=== PATIENT | male | born 1955 | race Caucasian/White ===

== ENCOUNTER 2016-10-28 13:49 | Inpatient (IN) | payer OTHER ==
[~2016-10-28] VITALS: Ht 175.3 cm; Wt 74.2 kg
[~2016-10-28 13:49] MED LIST: AMLO5TAB22 PO; CYCL1PAK PO; HYDR10SO PO; LANTUS2P SC; METO25 PO; PERC5TAB12 PO; ROSU20 PO
[2016-10-28 14:06] VITALS: BP 126/69; PULSE 82; RESP 16; TEMP 99.4; O2SAT 100
[2016-10-28] MEDS ORDERED: GABA300C5 PO (14:20)
[2016-10-28] MEDS ORDERED: LANTINJ SQ (14:20)
[2016-10-28] MEDS ORDERED: LOSA100T PO (14:20)
[2016-10-28] MEDS ORDERED: ROSU1TAB6 PO (14:20)
[2016-10-28] MEDS ORDERED: METO50TA11 PO (14:20)
[2016-10-28] MEDS ORDERED: HUMALOG SQ (14:20)
[2016-10-28] MEDS ORDERED: SODIUM CHLORIDE 0.9% FLUSH 5 ML FLUSH IVF PRN (14:30)
[2016-10-28 14:42] LABS: BASOPHIL % 0.4 % (0.0-2.0); EOSINOPHIL # 0.1 TH/MM3 (0-0.4); EOSINOPHIL % 0.9 % (0.0-4.0); HEMATOCRIT 36.8 % (39.0-51.0); LYMPH % 12.5 % (9.0-44.0); LYMPHOCYTE # 1.1 TH/MM3 (1.0-4.8); MEAN CELL VOLUME 87.5 FL (80.0-100.0); MEAN CORPUSCULAR HEMOGLOBIN 29.2 PG (27.0-34.0); MEAN CORPUSCULAR HGB CONC 33.4 % (32.0-36.0); MONO % 6.7 % (0.0-8.0); NEUT % 79.5 % (16.0-70.0); PLATELET COUNT 241 TH/MM3 (150-450); RED CELL DISTRIBUTION WIDTH 11.6 % (11.6-17.2); WHITE BLOOD COUNT 8.8 TH/MM3 (4.0-11.0)
[2016-10-28 14:44] LABS: HEMO FLAGS AUTO DIFF
--- NOTE | 2016-10-28 14:51 | RADHPO ---
EXAM DATE/TIME: 10/28/2016 14:38 [facility] COMPARISON: No previous studies available for comparison. INDICATIONS : Infected wound left ankle MEDICAL HISTORY : Diabetes mellitus type II. SURGICAL HISTORY : None. ENCOUNTER: Initial ACUITY: 2 days PAIN SCORE: 7/10 LOCATION: Left ankle FINDINGS: AP, lateral and oblique views of the left ankle were obtained demonstrate soft tissue swelling over l ateral malleolus with focal ulceration. There is no underlying bony abnormality. There is no perioste al new bone formation or destructive change. The Ankle mortise is intact. CONCLUSION: Soft tissue swelling and apparent ulceration with no underlying bony abnormality. Valeriano Matta MD on October 28, 2016 at 14:49 Board Certified Radiologist. This report was verified electronically.
[2016-10-28 14:53] LABS: CHLORIDE 105 MEQ/L (98-107); POTASSIUM 5.2 MEQ/L (3.5-5.1); SODIUM (NA) 141 MEQ/L (136-145)
[2016-10-28 14:56] LABS: ANION GAP 8 MEQ/L (5-15); BICARBONATE 28.1 MEQ/L (21.0-32.0); BLOOD UREA NITROGEN 42 MG/DL (7-18)
[2016-10-28 14:58] LABS: SCAN/DIFF AUTO DIFF CONFIRMED
[2016-10-28 14:59] LABS: ALT (GPT) 39 U/L (12-78); AST (GOT) 24 U/L (15-37); GLOMERULAR FILTRATION RATE 44 ML/MIN (>89)
[2016-10-28 15:01] LABS: TOTAL BILIRUBIN ADULT 0.4 MG/DL (0.2-1.0)
[2016-10-28 15:02] LABS: ALKALINE PHOSPHATASE 93 U/L (45-117)
[2016-10-28 15:06] VITALS: BP 159/71; PULSE 72; RESP 18; O2SAT 97
--- NOTE | 2016-10-28 15:23 | PD ---
HPI Chief Complaint: Skin Problem Time Seen by Provider: 14:19 Travel History International Travel<30 days: No Contact w/Intl Traveler<30days: No Traveled to known affect area: No History of Present Illness HPI Patient 61-year-old male presents emergency department for complaints of Ulcer to the left lateral malleolus. Patient states his diabetic and just noticed this ulcer 3 days ago but he thinks is probably been there longer. He states his been a foul smell and some discharge coming from it. He is also noticed his left lower extremity has been somewhat swollen. Denies any fevers denies any pain. When showed his decided to come up and be seen. He states his last A1c was 8.5. States he did not notice any progression of the wound. Denies any chest pain abdominal pain nausea vomiting diarrhea. PFSH Past Medical History Cancer: Yes (melanoma removed from back) Cardiovascular Problems: Yes (htn on meds, aortic valve replacement) Chemotherapy: No Diabetes: Yes (type 2) Patient Takes Glucophage: No Diminished Hearing: No Endocrine: Yes Gastrointestinal Disorders: Yes (GERD) Genitourinary: No Hepatitis: No Hiatal Hernia: Yes Hypertension: Yes Immune Disorder: No Musculoskeletal: Yes (ARTHRITIS) Neurologic: No Psychiatric: No Respiratory: No Immunizations Current: Yes Radiation Therapy: No Thyroid Disease: No Tetanus Vaccination: > 5 Years Influenza Vaccination: No Past Surgical History Abdominal Surgery: Yes (hernia repair as child) AICD: No Cardiac Surgery: No Coronary Artery Bypass Graft: Yes (aortic valve replacement) Ear Surgery: No Endocrine Surgery: No Eye Surgery: Yes (cataracts and laser surgery) Genitourinary Surgery: No Gynecologic Surgery: No Joint Replacement: No Oral Surgery: No Pacemaker: No Thoracic Surgery: No Tonsillectomy: Yes Other Surgery: Yes (torsion testicle) Social History Alcohol Use: Yes (1 dly) Tobacco Use: No Substance Use: Yes (1970's acid,cocaine,marijuana) Allergies-Medications (Allergen,Severity, Reaction): Coded Allergies: No Known Allergies (Unverified , 10/28/16) Reported Meds & Prescriptions Reported Meds & Active Scripts Active Reported Humalog Inj (Insulin Human Lispro) 1,000 Unit/10 Ml Vial 8 Units SQ ACHS Max dose at bedtime:( )units; sugars< 70,(0)units; sugars 150-199,(1)unit; sugars 200-249,(3)units; sugars 250-299,(5)units; sugars 300-349,(7)units; sugars more than 349,(9)units. Lantus Solostar Pen Inj (Insulin Glargine) 300 Unit/3 Ml Pen 1 Units SQ HS Gabapentin 300 Mg Cap 300 Mg PO HS Rosuvastatin (Rosuvastatin Calcium) 10 Mg Tab 10 Mg PO HS Metoprolol Succinate ER 24 HR (Metoprolol Succinate) 50 Mg Tab 50 Mg PO DAILY Losartan (Losartan Potassium) 100 Mg Tab 100 Mg PO DAILY Review of Systems Except as stated in HPI: all other systems reviewed are Neg Physical Exam Narrative GENERAL: Well-developed well-nourished no apparent distress. SKIN: There is some erythema of the left lower extremity, there is a abhilash- sized ulceration over the left lateral malleolus and the ankle. It is possible the periosteum is exposed. There is no obvious discharge noted wound at this time. HEAD: Atraumatic. Normocephalic. EYES: Pupils equal and round. No scleral icterus. No injection or drainage. ENT: No nasal bleeding or discharge. Mucous membranes pink and moist. NECK: Trachea midline. No JVD. CARDIOVASCULAR: Regular rate and rhythm. No murmur appreciated. RESPIRATORY: No accessory muscle use. Clear to auscultation. Breath sounds equal bilaterally. GASTROINTESTINAL: Abdomen soft, non-tender, nondistended. Hepatic and splenic margins not palpable. MUSCULOSKELETAL: No obvious deformities. No clubbing. No cyanosis. No edema. NEUROLOGICAL: Awake and alert. No obvious cranial nerve deficits. Motor grossly within normal limits. Normal speech. PSYCHIATRIC: Appropriate mood and affect; insight and judgment normal. Data Data Last Documented VS Vital Signs Date Time Temp Pulse Resp B/P Pulse Ox O2 Delivery O2 Flow Rate FiO2 10/28/16 15:06 97 10/28/16 15:06 72 18 159/71 Room Air 10/28/16 14:06 99.4 Orders Complete Blood Count With Diff (10/28/16 14:25) Comprehensive Metabolic Panel (10/28/16 14:25) Westergren Sedimentation Rate (10/28/16 14:25) C-Reactive Protein (Crp) (10/28/16 14:25) Ecg Monitoring (10/28/16 14:25) Iv Access Insert/Monitor (10/28/16 14:25) Oximetry (10/28/16 14:25) Sodium Chloride 0.9% Flush (Ns Flush) (10/28/16 14:30) Ankle, Complete (Paa3gyy) (10/28/16 ) Blood Culture (10/28/16 15:30) Vancomycin Inj (Vancomycin Inj) (10/28/16 15:30) Piperacil-Tazo 4.5 Gm Premix (Zosyn 4.5 (10/28/16 15:30) Wound Culture And Gram Stain (10/28/16 15:31) Labs Laboratory Tests Test 10/28/16 14:30 White Blood Count 8.8 TH/MM3 Red Blood Count 4.20 MIL/MM3 Hemoglobin 12.3 GM/DL Hematocrit 36.8 % Mean Corpuscular Volume 87.5 FL Mean Corpuscular Hemoglobin 29.2 PG Mean Corpuscular Hemoglobin 33.4 % Concent Red Cell Distribution Width 11.6 % Platelet Count 241 TH/MM3 Mean Platelet Volume 7.6 FL Neutrophils (%) (Auto) 79.5 % Lymphocytes (%) (Auto) 12.5 % Monocytes (%) (Auto) 6.7 % Eosinophils (%) (Auto) 0.9 % Basophils (%) (Auto) 0.4 % Neutrophils # (Auto) 7.0 TH/MM3 Lymphocytes # (Auto) 1.1 TH/MM3 Monocytes # (Auto) 0.6 TH/MM3 Eosinophils # (Auto) 0.1 TH/MM3 Basophils # (Auto) 0.0 TH/MM3 CBC Comment AUTO DIFF Differential Comment AUTO DIFF CONFIRMED Erythrocyte Sedimentation Rate 59 mm/hr Sodium Level 141 MEQ/L Potassium Level 5.2 MEQ/L Chloride Level 105 MEQ/L Carbon Dioxide Level 28.1 MEQ/L Anion Gap 8 MEQ/L Blood Urea Nitrogen 42 MG/DL Creatinine 1.60 MG/DL Estimat Glomerular Filtration 44 ML/MIN Rate Random Glucose 235 MG/DL Calcium Level 8.6 MG/DL Total Bilirubin 0.4 MG/DL Aspartate Amino Transf 24 U/L (AST/SGOT) Alanine Aminotransferase 39 U/L (ALT/SGPT) Alkaline Phosphatase 93 U/L Total Protein 7.0 GM/DL Albumin 3.3 GM/DL [facility] Medical Decision Making Medical Screen Exam Complete: Yes Emergency Medical Condition: Yes Differential Diagnosis Osteoarthritis, nonhealing ulcer, skin ulcer, Narrative Course Patient roomed in the emergency department, have a high clinical suspicion for osteomyelitis in this case. ESR is 59, creatinine 1.6, glucose 235. Potassium minimally elevated at 5.2. Will be given normal saline as well as insulin R at a conservative 2 units IV. Patient's x-ray is reassuring however clinical suspicion remains. He does have a large ulcer which is probably going to need surgical consultation in the near future. Will be started on vancomycin and Zosyn and admitted to the [facility] his service for further evaluation and management. Diagnosis Primary Impression: Osteomyelitis Qualified Code: M86.9 - Osteomyelitis of left ankle, unspecified type Admitting Information Admitting Physician Requests: Admit Condition: Stable Kristofer Montoya MD Oct 28, 2016 15:23
[2016-10-28] MEDS ORDERED: VANCOMYCIN INJ 1,000 MG in SODIUM CHLOR 0.9% 250 ML INJ 250 ML IV ONE (15:30)
[2016-10-28] MEDS ORDERED: PIPERACIL-TAZO 4.5 GM PREMIX 100 ML IV ONE (15:30)
[2016-10-28] MEDS ORDERED: INSULIN HUMAN REGULAR 1,000 UNITS/10 ML VIAL IV PUSH ONE (16:00)
[2016-10-28 16:12] VITALS: BP 141/63; PULSE 66; RESP 18; O2SAT 98
[2016-10-28] MEDS ORDERED: Vancomycin Consult Pharmacy 1 EA OTHER SCH (17:00)
[2016-10-28] MEDS ORDERED: NALOXONE HCL 0.4 MG/ML AMP IV PRN (17:00)
[2016-10-28] MEDS ORDERED: ONDANSETRON HCL 4 MG/2 ML VIAL IVP PRN (17:00)
[2016-10-28] MEDS ORDERED: BISACODYL 10 MG SUPP PR PRN (17:00)
[2016-10-28] MEDS ORDERED: SODIUM CHLORIDE 0.9% FLUSH 5 ML FLUSH FLUSH PRN (17:00)
[2016-10-28] MEDS ORDERED: DEXTROSE 50% IN WATER 50 ML VIAL(D50) IV PUSH PRN (17:00)
[2016-10-28] MEDS ORDERED: ACETAMINOPHEN 325 MG TAB PO PRN (17:00)
[2016-10-28] MEDS ORDERED: GLUCAGON 1 MG/ML VIAL OTHER PRN (17:00)
[2016-10-28] MEDS ORDERED: TEMAZEPAM 15 MG CAP PO PRN (17:00)
--- NOTE | 2016-10-28 17:14 | HHI.HP ---
[facility] Physician Jess Tate MD Admission Diagnosis Osteomyelitis Diagnoses: (1) Diabetic ankle ulcer (2) Diabetes mellitus Diagnosis: Secondary (3) Hypertension Diagnosis: Secondary (4) Chronic kidney disease, stage 3 Diagnosis: Secondary Chief Complaint: Left ankle wound Travel History International Travel<30 Days: No Contact w/Intl Traveler <30 Da: No Traveled to Known Affected Are: No History of Present Illness 61 year-old male with known history of hypertension, hyperlipidemia, diabetes, who presented to hospital because of foul smell and ulceration of his left ankle. Patient states that he does not do inspections of his skin as much as he should. He indicates that he started noticing a foul odor coming from his left ankle 2 days ago. He finally took a look at his ankle and noticed a ulceration so he came to the hospital for evaluation. Patient denies any fever , chills, chest pain, shortness of breath, pain in his lower extremities, any exudates noted from his wound. Patient had workup done emergency department to include x-ray which did show soft tissue swelling over the ulceration. Elevation in sedimentation rate and C-reactive protein. Because of those findings is recommended that the patient be admitted for further evaluation management. Review of Systems Constitutional: DENIES: Diaphoretic episodes, Fatigue, Fever, Weight gain, Weight loss, Chills, Dizziness, Change in appetite, Night Sweats Eyes: DENIES: Blurred vision, Diplopia, Eye inflammation, Eye pain, Vision loss , Double Vision Ears, nose, mouth, throat: DENIES: Vertigo, Nasal discharge, Throat pain, Ear Pain, Running Nose, Sinus Pain Respiratory: DENIES: Apneas, Cough, Snoring, Wheezing, Hemoptysis, Sputum production, Shortness of breath Cardiovascular: DENIES: Chest pain, Palpitations, Syncope, Dyspnea on Exertion , Lower Extremity Edema, Orthopnea Gastrointestinal: DENIES: Abdominal pain, Black stools, Bloody stools, Constipation, Diarrhea, Nausea, Vomiting, Difficulty Swallowing, Anorexia Neurologic: DENIES: Abnormal gait, Headache, Localized weakness, Paresthesias, Seizures, Speech Problems, Tremor, Poor Balance Past Family Social History Past Medical History Hypertension Hyperlipidemia Diabetes Diabetic neuropathy Chronic kidney disease stage III History of aortic stenosis Past Surgical History Tonsillectomy Aortic valve replacement Reported Medications Reported Meds & Active Scripts Active Reported Humalog Inj (Insulin Human Lispro) 1,000 Unit/10 Ml Vial 8 Units SQ ACHS Max dose at bedtime:( )units; sugars< 70,(0)units; sugars 150-199,(1)unit; sugars 200-249,(3)units; sugars 250-299,(5)units; sugars 300-349,(7)units; sugars more than 349,(9)units. Lantus Solostar Pen Inj (Insulin Glargine) 300 Unit/3 Ml Pen 1 Units SQ HS Gabapentin 300 Mg Cap 300 Mg PO HS Rosuvastatin (Rosuvastatin Calcium) 10 Mg Tab 10 Mg PO HS Metoprolol Succinate ER 24 HR (Metoprolol Succinate) 50 Mg Tab 50 Mg PO DAILY Losartan (Losartan Potassium) 100 Mg Tab 100 Mg PO DAILY Allergies: Coded Allergies: No Known Allergies (Unverified , 10/28/16) Family History Reviewed and significant for father with heart disease and of heart attack. Social History Patient quit smoking 1 year ago. He states that he smoked half a pack a cigarettes a day since early 20s. Denies alcohol rarely. Denies any illicit drugs Physical Exam Vital Signs Vital Signs Date Time Temp Pulse Resp B/P Pulse Ox O2 Delivery O2 Flow Rate FiO2 10/28/16 16:12 66 18 141/63 98 Room Air 10/28/16 15:06 97 10/28/16 15:06 72 18 159/71 97 Room Air 10/28/16 14:06 99.4 82 16 126/69 100 Physical Exam GENERAL: Well-developed, well-nourished, in no acute distress. alert and orientated HEENT: Head is normocephalic without any lesions or masses noted. Facial features are symmetric. Eyes: Pupils equal round reactive to light. Extraocular muscles are intact. Conjunctivae were clear. Oropharyngeal: Pharynx without any erythema edema. Tongue is midline without deviation. Buccal mucosa is moist without any masses or lesions NECK: Supple without any masses. Trachea midline no deviation. No JVD, no bruits are appreciated CARDIAC: Regular rhythm, regular rate. S1/S2 are heard. No murmurs gallops or rubs. LUNGS: Clear to auscultation bilaterally. No wheeze, rhonchi or rales. No use of accessory muscles on inspiration or expiration. ABDOMEN: Soft, nontender. Nondistended. Bowel sounds heard in all 4 quadrants. No organomegaly or masses. Negative rebound, negative guarding EXTREMITIES: No edema, pulses are equal bilaterally. No cyanosis or clubbing NEUROLOGY: Mood and affect appear appropriate. Cranial nerves II through XII grossly intact. Muscle strength 5/5 in upper and lower extremities bilaterally. Deep tendon reflexes are 2+ in upper and lower extremities bilaterally. LEFT ANKLE: Patient does have 1.5 cm annular ulceration noted over the lateral malleolus. Appears to be some serosanguineous fluid. No exudate is noted. Upon trying to express pus it was none present. Patient was with out sensation until getting to the skin and tissue medial to the wound. Laboratory Laboratory Tests Test 10/28/16 14:30 White Blood Count 8.8 Red Blood Count 4.20 Hemoglobin 12.3 Hematocrit 36.8 Mean Corpuscular Volume 87.5 Mean Corpuscular Hemoglobin 29.2 Mean Corpuscular Hemoglobin 33.4 Concent Red Cell Distribution Width 11.6 Platelet Count 241 Mean Platelet Volume 7.6 Neutrophils (%) (Auto) 79.5 Lymphocytes (%) (Auto) 12.5 Monocytes (%) (Auto) 6.7 Eosinophils (%) (Auto) 0.9 Basophils (%) (Auto) 0.4 Neutrophils # (Auto) 7.0 Lymphocytes # (Auto) 1.1 Monocytes # (Auto) 0.6 Eosinophils # (Auto) 0.1 Basophils # (Auto) 0.0 CBC Comment AUTO DIFF Differential Comment AUTO DIFF CONFIRMED Erythrocyte Sedimentation Rate 59 Sodium Level 141 Potassium Level 5.2 Chloride Level 105 Carbon Dioxide Level 28.1 Anion Gap 8 Blood Urea Nitrogen 42 Creatinine 1.60 Estimat Glomerular Filtration 44 Rate Random Glucose 235 Calcium Level 8.6 Total Bilirubin 0.4 Aspartate Amino Transf 24 (AST/SGOT) Alanine Aminotransferase 39 (ALT/SGPT) Alkaline Phosphatase 93 C-Reactive Protein 2.50 Total Protein 7.0 Albumin 3.3 Date/Time Procedure Status Source Growth 10/28/16 15:40 Aerobic Blood Culture Received Blood Peripheral Pending 10/28/16 15:40 Anaerobic Blood Culture Received Blood Peripheral Pending 10/28/16 15:20 Gram Stain Received Wound Foot Pending 10/28/16 15:20 Wound Culture Received Wound Foot Pending Result Diagram: 10/28/16 1430 10/28/16 1430 Imaging Last Impressions Ankle X-Ray 10/28/16 0000 Signed Impressions: Service Date/Time: Friday, October 28, 2016 14:38 - CONCLUSION: Soft tissue swelling and apparent ulceration with no underlying bony abnormality. Valeriano Matta MD Assessment and Plan Assessment and Plan Left lateral malleolus diabetic ulceration with diabetic neuropathy: X-ray shows soft tissue swelling noted over the lateral malleolus. Sedimentation rate and C-reactive protein are elevated. We'll obtain MRI contrast to evaluate for any bone involvement. Start vancomycin/Zosyn for antibiotic coverage. Culture has been taken. Await results appropriate antibiotics. Consult podiatry for further recommendations, likely need some form of surgical intervention via I&D or possible deep scraping. Obtain MARILOU studies due to patient's history, coloration of his lower extremity skin. Diabetes: Accu-Cheks with sliding scale insulin Chronic kidney disease stage III, with mild hyperkalemia: GFR appears to be stable. Start IV fluids, monitor renal function. If potassium continues to remain elevated, may consider decreasing losartan and adding other medications for blood pressure Hypertension, hyperlipidemia: Continue home medications DVT prevention: Sequential compression devices Written by Gerard Mata PA-C, acting as scribe for Dr. Amezquita on 10/28/16 at 1730. The documentation accurately reflects the work and decisions performed face-to- face by Dr. Amezquita on 10/28/16 at 1730. Physician Certification 2 Midnight Certification Type: Admission for Inpatient Services Order for Inpatient Services The services are ordered in accordance with Medicare regulations or non- Medicare payer requirements, as applicable. In the case of services not specified as inpatient-only, they are appropriately provided as inpatient services in accordance with the 2-midnight benchmark. Estimated LOS (days): 3 days is the estimated time the patient will need to remain in the hospital, assuming treatment plan goals are met and no additional complications. Post-Hospital Plan: Not yet determined Problem Qualifiers (1) Diabetes mellitus: Qualified Code: E10.40 - Type 1 diabetes mellitus with diabetic neuropathy (2) Hypertension: Qualified Code: I15.9 - Secondary hypertension Gerard Mata Oct 28, 2016 17:14
[2016-10-28 17:30] VITALS: BP 168/72; PULSE 68; RESP 18; TEMP 98.1; O2SAT 100
[2016-10-28] MEDS: SODIUM CHLOR 0.9% 1000 ML INJ 1,000 ML IV SCH (19:53)
[2016-10-28] MEDS: SODIUM CHLORIDE 0.9% FLUSH 5 ML FLUSH FLUSH SCH (19:54)
--- NOTE | 2016-10-28 19:57 | RADHPO ---
EXAM DATE/TIME: 10/28/2016 18:19 [facility] COMPARISON: ANKLE LEFT COMPLETE ([id number]), October 28, 2016, 14:38. INDICATIONS : Diabetic ulceration CONTRAST: 14 cc Multihance (gadobenate) IV MEDICAL HISTORY : Renal insufficiency. Diabetes mellitus type 2. Hypertension. Skin cancer SURGICAL HISTORY : Heart valve replacement one year ago. ENCOUNTER: Initial ACUITY: 1 week PAIN SCORE: 6/10 LOCATION: lateral side of ankle. TECHNIQUE: Multiplanar, multisequence MRI examination was performed without contrast and after the intravenous a dministration of gadolinium. FINDINGS: BONE/CARTILAGE: There is ulceration of the skin adjacent to the distal fibula/lateral malleolus. There is prominent e saray within the distal fibula laterally consistent with osteomyelitis. Small joint effusion. TENDONS: All of the visualized tendons are intact. LIGAMENTS: The lateral and medial ligament complexes are intact. MISCELLANEOUS: The plantar aponeurosis is intact. The tarsal tunnel is within normal limits. POST-CONTRAST: There is enhancement of the lateral malleolus. CONCLUSION: 1. Osteomyelitis distal fibula/lateral malleolus. 2. Small joint effusion. Angel Crowell MD on October 28, 2016 at 19:52 Board Certified Radiologist. This report was verified electronically.
[2016-10-28] MEDS ORDERED: GADOBENATE DIM PF 529 MG/ML 5 ML VIAL (for RAD MRI) IV-CENTRAL ONE (20:23)
[2016-10-28 20:50] VITALS: BP 156/78; PULSE 73; RESP 16; TEMP 96.4; O2SAT 97
[2016-10-28] MEDS: INSULIN ASPART SUPPLEMENTAL SCALE SQ SCH (21:00)
[2016-10-28] MEDS: GABAPENTIN 300 MG CAP PO SCH (22:03)
[2016-10-28] MEDS: ATORVASTATIN 20 MG TAB PO SCH (22:03)
[2016-10-29 00:53] VITALS: BP 159/81; PULSE 81; RESP 16; TEMP 97; O2SAT 99
[2016-10-29] MEDS: PIPERACIL-TAZO 3.375 GM PREMIX 50 ML IV SCH ×4 (01:25→18:14)
[2016-10-29] MEDS: SODIUM CHLOR 0.9% 1000 ML INJ 1,000 ML IV SCH ×2 (05:07→17:47)
[2016-10-29] MEDS: INSULIN ASPART SUPPLEMENTAL SCALE SQ SCH ×5 (05:07→20:08)
[2016-10-29 06:10] LABS: AUTOMATED NEUTROPHIL # 5.6 TH/MM3 (1.8-7.7); BASOPHIL % 0.4 % (0.0-2.0); EOSINOPHIL # 0.1 TH/MM3 (0-0.4); EOSINOPHIL % 1.1 % (0.0-4.0); HEMATOCRIT 34.6 % (39.0-51.0); HEMO FLAGS DIFF FINAL; LYMPH % 19.4 % (9.0-44.0); LYMPHOCYTE # 1.5 TH/MM3 (1.0-4.8); MEAN CELL VOLUME 87.7 FL (80.0-100.0); MEAN CORPUSCULAR HEMOGLOBIN 28.3 PG (27.0-34.0); MEAN CORPUSCULAR HGB CONC 32.3 % (32.0-36.0); MONO % 8.9 % (0.0-8.0); NEUT % 70.2 % (16.0-70.0); PLATELET COUNT 240 TH/MM3 (150-450); RED BLOOD COUNT 3.95 MIL/MM3 (4.50-5.90); RED CELL DISTRIBUTION WIDTH 11.5 % (11.6-17.2); WHITE BLOOD COUNT 7.9 TH/MM3 (4.0-11.0)
[2016-10-29 06:20] LABS: POTASSIUM 4.5 MEQ/L (3.5-5.1)
[2016-10-29 06:25] LABS: BICARBONATE 24.9 MEQ/L (21.0-32.0)
[2016-10-29 08:00] VITALS: BP 162/89; PULSE 77; RESP 20; TEMP 98; O2SAT 96
[2016-10-29] MEDS: METOPROLOL SUCCINATE 50 MG EXTENDED RELEASE TAB PO SCH (08:23)
[2016-10-29] MEDS: LOSARTAN 50 MG TAB PO SCH (08:24)
[2016-10-29] MEDS: SODIUM CHLORIDE 0.9% FLUSH 5 ML FLUSH FLUSH SCH ×2 (08:25→19:56)
--- NOTE | 2016-10-29 09:35 | MB ---
cc: TULIO HAGAN DPM DATE OF CONSULTATION: 10/29/2016 REASON FOR CONSULTATION Left ankle abscess, cellulitis, possible osteomyelitis. HISTORY OF PRESENT ILLNESS A 61-year-old male who over the course of one week had a wound; however, over the last two days he noticed a foul odor. He does have neuropathy. He did not have much pain. 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 The patient is currently seen bedside. He is not the best historian but he says this is likely secondary to him having peripheral neuropathy and he is constantly scraping his legs and not knowing about it. PAST MEDICAL HISTORY 1. Hypertension. 2. Hyperlipidemia. 3. Diabetes. 4. Diabetic peripheral neuropathy. 5. Chronic kidney disease, stage III. 6. History of aortic stenosis. PAST SURGICAL HISTORY 1. Tonsillectomy. 2. Aortic valve replacement. MEDICATIONS Outpatient medications are reviewed. Inpatient medications are also reviewed. He is receiving antibiotics, vancomycin and Zosyn. ALLERGIES None listed. PHYSICAL EXAMINATION VITAL SIGNS: Temperature 98, pulse rate 77, respiratory rate 20, blood pressure 162/89. He is satting 96% on room air. GENERAL: This is an alert and oriented male seen bedside exhibiting non-labored respirations. He is missing some fingers of his upper extremity but he has no open wounds. LEFT LOWER EXTREMITY: There are superficial abrasions to the pretibial area. There is mild muscle wasting. Upon evaluating the lateral ankle there is an approximately 2 cm eschar with mild odor. There is periwound erythema. Upon pressure of the area there is minimal serous drainage. Upon range of motion of the ankle it appears to be within normal limits with no crepitus or instability. Pulses are hard to palpate, however, present dorsalis pedis and posterior tibialis. RIGHT LOWER EXTREMITY: Within normal limits without any open lesions. LABORATORY FINDINGS White blood cell count 7.9, hemoglobin/hematocrit 11/34, platelet count 240. Chem-7: Sodium 144, potassium 4.5, chloride 111, CO2 24.9, BUN 27, creatinine 1.3, random glucose 130. IMAGING FINDINGS Ankle x-rays appear to show no obvious bony abnormality. The mortise appears to be intact. However, MRI shows a different story. There appears to be bony uptake and edema which is consistent with osteomyelitis of the distal fibula and lateral malleolus. ASSESSMENT AND PLAN Left lateral ankle eschar ulcer with possible osteomyelitis. Arterial Dopplers are ordered and pending. It is recommended a debridement and a minimal incision bone biopsy take place to determine if the bone is infected and to determine the pathogen. The patient will be ordered n.p.o. after midday and the surgery will likely take place within the next [address] Wallis will resume care. I spoke with Dr. Wallis. He understood the patient and accepted care, and he will be the surgeon who takes on the case starting tomorrow. ZEUS Parrish/CHANI /9:15 AM /9:27 AM
[2016-10-29] MEDS: amLODIPine BESYLATE 5 MG TAB PO SCH (11:52)
[2016-10-29 12:00] VITALS: BP 165/85; PULSE 72; RESP 20; TEMP 97.8; O2SAT 98
--- NOTE | 2016-10-29 12:38 | HHI.PR ---
Subjective Remarks Stable afebrile overnight Plan to go for biopsy of the wound ulcer No chest pain short of breath nausea or vomiting Objective Vitals Vital Signs Date Time Temp Pulse Resp B/P Pulse Ox O2 Delivery O2 Flow Rate FiO2 10/29/16 12:00 97.8 72 20 165/85 98 10/29/16 08:00 98.0 77 20 162/89 96 10/29/16 00:53 97.0 81 16 159/81 99 10/28/16 20:50 96.4 73 16 156/78 97 10/28/16 17:30 98.1 68 18 168/72 100 10/28/16 16:12 66 18 141/63 98 Room Air 10/28/16 15:06 97 10/28/16 15:06 72 18 159/71 97 Room Air 10/28/16 14:06 99.4 82 16 126/69 100 I/O 10/28/16 10/28/16 10/28/16 10/29/16 10/29/16 10/29/16 07:00 15:00 23:00 07:00 15:00 23:00 Intake Total 541 ml 766 ml Balance 541 ml 766 ml Intake IV Total 541 ml 766 ml # Voids 2 2 Result Diagram: 10/29/16 0507 10/29/16 0507 Objective Remarks - GENERAL: This is a well-nourished, well-developed patient, in no apparent distress. SKIN: No rashes, warm and dry HEAD: Atraumatic. Normocephalic. EYES: Pupils equal round and reactive. Extraocular motions intact. No scleral icterus. ENT: Nose without bleeding, or drainage, Airway patent. NECK: Trachea midline. Supple CARDIOVASCULAR: Regular rate and rhythm without murmurs, gallops, or rubs. RESPIRATORY: Fair air entry bilaterally. No wheezes, rales, or rhonchi. GASTROINTESTINAL: Abdomen soft, non-tender, nondistended. Positive bowel sounds MUSCULOSKELETAL: Extremities without clubbing, cyanosis, or edema. Pedal pulses appreciated, left ankle left malleolus with 3 cm rounded ulcer seems to be wet but no significant drainage, erythematous edges, possible bone tissue in the bottom NEUROLOGICAL: Awake and alert. Moves all extremity. Normal speech.no focal neurological deficit A/P Problem List: (1) Diabetic ankle ulcer ICD Code: E11.622 Status: Acute (2) Diabetes mellitus ICD Code: E11.9 Status: Acute (3) Hypertension ICD Code: I10 Status: Acute (4) Chronic kidney disease, stage 3 ICD Code: N18.3 Status: Acute Assessment and Plan Left lateral malleolus diabetic ulceration with diabetic neuropathy: X-ray shows soft tissue swelling noted over the lateral malleolus. Sedimentation rate and C-reactive protein are elevated. MRI positive for OM. Placed on vancomycin/Zosyn for antibiotic coverage. Culture obtain. Followed resolved. Podiatry consulted, discussed with Dr. Irwin I&D or possible deep scraping and biopsy by Dr. Wallis And maritza consulting ID pending result of the wound culture and biopsy Diabetes: Accu-Cheks with sliding scale insulin Chronic kidney disease stage III, with mild hyperkalemia: Improved, monitor BMP Hypertension, hyperlipidemia: Continue home medications DVT prevention: Sequential compression devices Discharge Planning When cleared by podiatry Problem Qualifiers (1) Diabetes mellitus: Qualified Code: E10.40 - Type 1 diabetes mellitus with diabetic neuropathy (2) Hypertension: Qualified Code: I15.9 - Secondary hypertension Jorge Amezquita MD Oct 29, 2016 12:38
[2016-10-29] MEDS: VANCOMYCIN INJ 750 MG in SODIUM CHLOR 0.9% 250 ML INJ 250 ML IV SCH (13:03)
--- NOTE | 2016-10-29 15:40 | RADRPT ---
EXAM DATE/TIME: 10/28/2016 00:00 [facility] COMPARISON: No previous studies available for comparison. INDICATIONS : OSTEMYELITIS TECHNIQUE: Four-cuff ankle and brachial pressures were obtained. Pulse cuff waveform tracings of the ankles were recorded, and ankle-brachial indices were calculated. PRESSURES (mmHg): Brachial (arm): Right IV SITE Left 182 Ankle: Right 164 Left 168 MARILOU: Right 0.90 Left 0.92 PULSED CUFF WAVEFORMS: Demonstrate normal amplitude bilaterally. CONCLUSION: Ankle brachial indices are within the low normal range bilaterally. Alex Beal MD on October 29, 2016 at 15:38 Board Certified Radiologist. This report was verified electronically.
[2016-10-29 16:00] VITALS: BP 141/78; PULSE 72; RESP 20; TEMP 98.7; O2SAT 98
[2016-10-29] MEDS: ATORVASTATIN 20 MG TAB PO SCH (19:58)
[2016-10-29] MEDS: GABAPENTIN 300 MG CAP PO SCH (19:58)
[2016-10-29 20:00] VITALS: BP 175/90; PULSE 90; RESP 18; TEMP 98.7; O2SAT 96
[2016-10-29 22:50] VITALS: BP 140/72
[2016-10-30] VITALS (7 sets, daily range): BP systolic 136–172; BP diastolic 68–90; PULSE 68–86; RESP 18–20; TEMP 96.2–99.4; O2SAT 97–99
[2016-10-30] MEDS: PIPERACIL-TAZO 3.375 GM PREMIX 50 ML IV SCH ×4 (01:13→18:04)
[2016-10-30] MEDS: VANCOMYCIN INJ 750 MG in SODIUM CHLOR 0.9% 250 ML INJ 250 ML IV SCH (04:58)
[2016-10-30] MEDS: SODIUM CHLOR 0.9% 1000 ML INJ 1,000 ML IV SCH ×2 (04:59→11:44)
[2016-10-30] MEDS: INSULIN ASPART SUPPLEMENTAL SCALE SQ SCH ×4 (06:04→21:00)
[2016-10-30] MEDS ORDERED: BUPIVACAINE HCL PF 0.25% 30 ML VIAL ONE (07:21)
[2016-10-30] MEDS ORDERED: LIDOCAINE HCL 1% 30 ML VIAL ONE (07:21)
[2016-10-30] MEDS ORDERED: SODIUM CHLORIDE 0.9% FLUSH 5 ML FLUSH IVF PRN (07:45)
[2016-10-30] MEDS ORDERED: Post-op Orders (for Pharmacy) MISC XX ONE (07:45)
[2016-10-30] MEDS ORDERED: MIDAZOLAM HCL 2 MG/2 ML VIAL ONE (08:39)
[2016-10-30] MEDS: amLODIPine BESYLATE 5 MG TAB PO SCH (09:08)
[2016-10-30] MEDS: METOPROLOL SUCCINATE 50 MG EXTENDED RELEASE TAB PO SCH (09:08)
[2016-10-30] MEDS: LOSARTAN 50 MG TAB PO SCH (09:09)
[2016-10-30] MEDS: SODIUM CHLORIDE 0.9% FLUSH 5 ML FLUSH IVF SCH ×2 (09:10→22:38)
[2016-10-30] MEDS ORDERED: LACTATED RINGER'S 1000 ML INJ 1,000 ML IV ONE (12:00)
[2016-10-30] MEDS ORDERED: PROPOFOL 200 MG/20 ML AMP IV ONE (12:00)
[2016-10-30] MEDS ORDERED: HUMALOG SQ (12:10)
--- NOTE | 2016-10-30 12:27 | HHI.PR ---
Subjective Remarks Follow-up patient with left lateral malleolus diabetic ulceration. Patient status post I&D and bone biopsy of the left ankle. Patient refusing his sliding scale insulin due to concerns of hypoglycemia. States he did not receive his evening insulin dose due to NPO status for this morning's procedure. Patient takes Lantus at night as well as sliding scale before meals however the med rec is not completed. She has no other complaints at this time. Objective Vitals Vital Signs Date Time Temp Pulse Resp B/P Pulse Ox O2 Delivery O2 Flow Rate FiO2 10/30/16 09:00 97.8 86 18 160/81 99 10/30/16 08:45 73 16 149/81 96 Room Air 10/30/16 08:30 76 16 158/71 96 Room Air 10/30/16 08:23 98.7 77 16 156/75 98 Room Air 10/30/16 06:58 97.1 85 18 136/68 98 10/30/16 04:00 97.1 85 18 136/68 98 10/30/16 00:00 96.2 86 18 144/86 97 10/29/16 22:50 140/72 10/29/16 20:00 98.7 90 18 175/90 96 10/29/16 16:00 98.7 72 20 141/78 98 I/O 10/29/16 10/29/16 10/29/16 10/30/16 10/30/16 10/30/16 07:00 15:00 23:00 07:00 15:00 23:00 Intake Total 766 ml 360 ml 1320 ml 320 ml Output Total 700 ml 650 ml Balance 766 ml -340 ml 670 ml 320 ml Intake Oral 360 ml 320 ml 120 ml IV Total 766 ml 1000 ml Other 200 ml Output Urine Total 700 ml 650 ml # Voids 2 5 0 # Bowel Movements 1 Result Diagram: 10/29/16 0507 10/29/16 0507 Objective Remarks GENERAL: This is a well-nourished, well-developed patient, in no apparent distress. A&Ox3. SKIN: No rashes, warm and dry HEAD: Atraumatic. Normocephalic. EYES: Pupils equal round and reactive. Extraocular motions intact. No scleral icterus. ENT: Nose without bleeding, or drainage, Airway patent. NECK: Trachea midline. Supple CARDIOVASCULAR: Regular rate and rhythm without murmurs, gallops, or rubs. RESPIRATORY: Fair air entry bilaterally. No wheezes, rales, or rhonchi. GASTROINTESTINAL: Abdomen soft, non-tender, nondistended. Positive bowel sounds MUSCULOSKELETAL: Left ankle in postop dressing with some serosanguineous drainage noted. NEUROLOGICAL: Awake and alert. Moves all extremity. Normal speech.no focal neurological deficit. Medications and IVs Current Medications Medications (Trade) Dose Ordered Sig/Ross Route Start Time Stop Time Status Last Admin (Tylenol) 650 mg Q4H PRN PO 10/28/16 17:00 10/29/16 20:28 (Zofran Inj) 4 mg Q6H PRN IVP 10/28/16 17:00 (Dulcolax Supp) 10 mg DAILY PRN SC 10/28/16 17:00 (Restoril) 15 mg HS PRN PO 10/28/16 17:00 (Narcan Inj) 0.4 mg UNSCH PRN IV 10/28/16 17:00 (D50w (Vial) Inj) 25 ml UNSCH PRN IV PUSH 10/28/16 17:00 Glucagon 1 mg 1 mg UNSCH PRN OTHER 10/28/16 17:00 Pharmacy Profile Note 0 ml @ 0 mls/hr UNSCH OTHER 10/28/16 17:00 (Zosyn 3.375 Gm Premix) 50 ml @ 100 mls/hr Q6H IV 10/29/16 01:00 10/30/16 06:00 (Neurontin) 300 mg HS PO 10/28/16 21:00 10/29/16 19:58 (Cozaar) 100 mg DAILY PO 10/29/16 09:00 10/30/16 09:09 (Toprol Xl) 50 mg DAILY PO 10/29/16 09:00 10/30/16 09:08 Atorvastatin Calcium 20 mg 20 mg HS PO 10/28/16 21:00 10/29/16 19:58 Sodium Chloride 1,000 ml @ 84 mls/hr [id number] IV 10/28/16 17:15 10/30/16 11:44 (Vancomycin Inj/ NS 250 ml Inj) 257.5 ml @ 250 mls/hr Q18H IV 10/29/16 12:00 10/30/16 04:58 Miscellaneous Information SPECIFIC LAB TO BE .. ONCE ONCE XX 10/30/16 23:45 10/30/16 23:46 (Norvasc) 2.5 mg DAILY PO 10/29/16 11:00 10/30/16 09:08 (NS Flush) 2 ml UNSCH PRN IVF 10/30/16 07:45 (NS Flush) 2 ml BID IVF 10/30/16 09:00 10/30/16 09:10 A/P Problem List: (1) Diabetic ankle ulcer ICD Code: E11.622 Status: Acute (2) Diabetes mellitus ICD Code: E11.9 Status: Acute (3) Hypertension ICD Code: I10 Status: Acute (4) Chronic kidney disease, stage 3 ICD Code: N18.3 Status: Acute Assessment and Plan Left lateral malleolus diabetic ulceration with diabetic neuropathy: X-ray shows soft tissue swelling noted over the lateral malleolus. Sedimentation rate and C-reactive protein are elevated. MRI positive for OM. Podiatry consulted, discussed with Dr. Irwin. s/p I&D and biopsy by Dr. Wallis this am. Will consider consulting ID pending result of the wound culture and biopsy. Will follow up on intraoperative culture results. Continue on vancomycin/Zosyn for antibiotic coverage. Diabetes: Accu-Cheks with sliding scale insulin. Bedside glucose ranged from 173-317 today. Patient refusing insulin sliding scale due to concerns for hypoglycemia. Medication reconciliation incomplete in regards to insulin medications/dosage. Requested nursing staff verification on med rec in regards to this and well will resume patient's home insulin dose once able. CHRISTOPHER on Chronic kidney disease stage III, with mild hyperkalemia: Improved with potassium in normal range at 4.5 at. CHRISTOPHER resolved with improvement in creatinine 1.60 ->1.30. Hypertension, hyperlipidemia: Continue home medications. Elevated BP at present may be situational due to concerns of taking his insulin. Continue to monitor BP closely and adjust treatment as indicated. DVT prevention: Sequential compression devices Written by Evon Alves, acting as scribe for Dr. Amezquita on 10/30/16 at 11:22. Discharge Planning When cleared by podiatry Problem Qualifiers (1) Diabetes mellitus: Qualified Code: E10.40 - Type 1 diabetes mellitus with diabetic neuropathy (2) Hypertension: Qualified Code: I15.9 - Secondary hypertension Evon Alves Oct 30, 2016 12:27
[2016-10-30] MEDS ORDERED: oxyCODONE/ACETAMINOPHEN 10 MG/325 MG TAB PO PRN (13:00)
[2016-10-30] MEDS ORDERED: oxyCODONE/ACETAMINOPHEN 5 MG/325 MG TAB PO PRN (13:00)
[2016-10-30] MEDS ORDERED: amLODIPine BESYLATE 5 MG TAB PO ONE (17:45)
[2016-10-30] MEDS: oxyCODONE/ACETAMINOPHEN 5 MG/325 MG TAB PO PRN (20:44)
[2016-10-30] MEDS: GABAPENTIN 300 MG CAP PO SCH (20:45)
[2016-10-30] MEDS: ATORVASTATIN 20 MG TAB PO SCH (22:38)
[2016-10-30] MEDS ORDERED: PHARMACY ORDERED LAB XX ONE (23:45)
[2016-10-31] VITALS: BP 160/86; PULSE 83; RESP 20; TEMP 98.3; O2SAT 96
[2016-10-31] MEDS: VANCOMYCIN INJ 750 MG in SODIUM CHLOR 0.9% 250 ML INJ 250 ML IV SCH (00:43)
[2016-10-31] MEDS: PIPERACIL-TAZO 3.375 GM PREMIX 50 ML IV SCH ×4 (03:13→19:47)
[2016-10-31 04:00] VITALS: BP 172/92; PULSE 84; RESP 16; TEMP 97.9; O2SAT 97
[2016-10-31] MEDS: SODIUM CHLOR 0.9% 1000 ML INJ 1,000 ML IV SCH ×2 (06:15→16:45)
[2016-10-31] MEDS: INSULIN ASPART SUPPLEMENTAL SCALE SQ SCH ×4 (06:17→21:09)
[2016-10-31 08:00] VITALS: PULSE 89; RESP 16; TEMP 98.9; O2SAT 97
[2016-10-31] MEDS: oxyCODONE/ACETAMINOPHEN 5 MG/325 MG TAB PO PRN ×2 (08:30→17:08)
--- NOTE | 2016-10-31 08:40 | MP ---
cc: DEVORA GUAJARDO DPM DATE OF SURGERY: 10/30/2016 DATE OF : 1955 PREOPERATIVE DIAGNOSIS: 1. Left ankle eschar. 2. Possible bone osteomyelitis. POSTOPERATIVE DIAGNOSIS: 1. Left ankle eschar. 2. Possible bone osteomyelitis. OPERATION: 1. Left ankle incision and drainage and debridement of all necrotic tissue. 2. Copious irrigation. 3. Deep culture swab. 4. Left fibula bone biopsy/culture. SURGEON Devora Guajardo DPM [employer] Staff. TOURNIQUET No ankle tourniquet inflated. ANESTHESIA MAC with 6 ccs of 0.5 Marcaine plain, 1% lidocaine plain injected preoperatively and a nail block proximal to the wound. COMPLICATIONS None. SPECIMEN SENT Left bone culture, left soft tissue swab. INDICATION This patient is a 61-year-old diabetic male with neuropathy, who developed a pressure eschar on his left outside ankle over his fibula with wound that is questionable for bone infection. The patient is requiring surgical intervention for the problem at this time due to risk of bone infection and risk of septicemia secondary to wound. The patient understands the procedure performed today as well as potential risks and complications involved. All questions were answered. The risks versus benefits were discussed at length. PROCEDURE The patient was brought to the operating room and placed on the operating table in the supine position. Pneumatic calf tourniquet was placed about the left calf but was not inflated. 6 ccs of 0.5 Marcaine plain and 1% lidocaine plain was injected preoperatively. The foot was anesthetized. The foot was scrubbed, prepped and draped in the usual sterile fashion. First attention was directed in which the eschar which was 2 cm circumferentially, all necrotic tissue in the surrounding area was debrided sharply with a 15 blade, rongeur and iris scissors. There was good punctate bleeding in the area. Once the eschar was debrided it was down to bone. The bone was found to be irregular and very soft. A Jamshidi was used to purchase through the cortex, again the bone was very soft and specimen of bone was sent to culture. A deep culture swab of the soft tissues was performed before the bone biopsy was performed. 1 liter of saline irrigation was used to flush the wound. There was found to be no more necrotic tissue in the area and good punctate bleeding. Next, Iodoform packing with Betadine, 4 x 4, cast padding and Julius was used to wrap the foot, and the patient handled anesthesia well. ZEUS Alfonso/TLL /8:19 AM /8:11 AM
[2016-10-31] MEDS: METOPROLOL SUCCINATE 50 MG EXTENDED RELEASE TAB PO SCH (09:00)
[2016-10-31] MEDS: SODIUM CHLORIDE 0.9% FLUSH 5 ML FLUSH IVF SCH ×2 (09:00→21:00)
[2016-10-31] MEDS: LOSARTAN 50 MG TAB PO SCH (10:46)
[2016-10-31] MEDS: VANCOMYCIN INJ 1,250 MG in SODIUM CHLOR 0.9% 250 ML INJ 250 ML IV SCH ×2 (11:29→12:52)
[2016-10-31 12:00] VITALS: BP 197/97; PULSE 84; RESP 18; TEMP 98.8; O2SAT 98
[2016-10-31] MEDS: cloNIDine HCL 0.1 MG TAB PO SCH ×2 (12:00→21:09)
[2016-10-31] MEDS: hydrALAZINE HCL 25 MG TAB PO PRN (12:51)
[2016-10-31] MEDS ORDERED: LORazepam 0.5 MG TAB PO PRN (13:45)
[2016-10-31] MEDS ORDERED: LORazepam 1 MG TAB PO ONE (13:45)
--- NOTE | 2016-10-31 15:26 | HHI.PR ---
Subjective Remarks Follow up on left malleolus ulcer rule out posterior myelitis Patient feeling anxious home no fever or chills, deep biopsy culture with multiple organism consult ID Objective Vitals Vital Signs Date Time Temp Pulse Resp B/P Pulse Ox O2 Delivery O2 Flow Rate FiO2 10/31/16 12:00 98.8 84 18 197/97 98 10/31/16 08:00 98.9 89 16 97 10/31/16 04:00 97.9 84 16 172/92 97 10/31/16 00:00 98.3 83 20 160/86 96 10/30/16 22:01 18 10/30/16 20:00 98.7 68 20 144/74 97 Automatic Cuff 10/30/16 16:00 99.4 78 18 172/90 97 I/O 10/30/16 10/30/16 10/30/16 10/31/16 10/31/16 10/31/16 07:00 15:00 23:00 07:00 15:00 23:00 Intake Total 1320 ml 870 ml 120 ml 1040 ml Output Total 650 ml 300 ml Balance 670 ml 870 ml 120 ml 740 ml Intake Oral 320 ml 670 ml 120 ml 240 ml IV Total 1000 ml 800 ml Other 200 ml Output Urine Total 650 ml 300 ml # Voids 5 3 1 1 # Bowel Movements 1 2 1 0 Result Diagram: 10/29/16 0507 10/29/16 0507 Other Results Microbiology Date/Time Procedure Status Source Growth 10/30/16 08:05 Gram Stain - Final Resulted Wound Ankle 10/30/16 08:05 Wound Culture - Preliminary Resulted Staphylococcus Aureus Enterobacter Cloacae 10/30/16 08:05 Fungal Smear - Final Resulted Wound Ankle NO FUNGAL ELEMENTS SEEN. 10/30/16 08:05 Fungal Culture Resulted Wound Ankle Pending 10/30/16 08:05 Fungal Smear Received Wound Ankle Pending 10/30/16 08:05 Fungal Culture Received Wound Ankle Pending 10/30/16 08:05 Acid Fast Stain - Final Resulted Wound Ankle NO ACID FAST BACILLI SEEN 10/30/16 08:05 Mycobacterial Culture Resulted Wound Ankle Pending 10/28/16 15:40 Aerobic Blood Culture - Preliminary Resulted Blood Peripheral NO GROWTH IN 3 DAYS 10/28/16 15:40 Anaerobic Blood Culture - Preliminary Resulted Blood Peripheral NO GROWTH IN 3 DAYS Objective Remarks - GENERAL: This is a well-nourished, well-developed patient, in no apparent distress. SKIN: No rashes, warm and dry HEAD: Atraumatic. Normocephalic. EYES: Pupils equal round and reactive. Extraocular motions intact. No scleral icterus. ENT: Nose without bleeding, or drainage, Airway patent. NECK: Trachea midline. Supple CARDIOVASCULAR: Regular rate and rhythm without murmurs, gallops, or rubs. RESPIRATORY: Fair air entry bilaterally. No wheezes, rales, or rhonchi. GASTROINTESTINAL: Abdomen soft, non-tender, nondistended. Positive bowel sounds MUSCULOSKELETAL: Extremities without clubbing, cyanosis, or edema. Pedal pulses appreciated, left ankle left malleolus with 3 cm rounded ulcer seems to be wet but no significant drainage, erythematous edges, possible bone tissue in the bottom NEUROLOGICAL: Awake and alert. Moves all extremity. Normal speech.no focal neurological deficit A/P Problem List: (1) Diabetic ankle ulcer ICD Code: E11.622 Status: Acute (2) Diabetes mellitus ICD Code: E11.9 Status: Acute (3) Hypertension ICD Code: I10 Status: Acute (4) Chronic kidney disease, stage 3 ICD Code: N18.3 Status: Acute Assessment and Plan Left lateral malleolus diabetic ulceration with diabetic neuropathy: X-ray shows soft tissue swelling noted over the lateral malleolus. Sedimentation rate and C-reactive protein are elevated. MRI positive for OM. Placed on vancomycin/Zosyn for antibiotic coverage. Culture obtain showed Staphylococcus Aureus Enterobacter Cloacae. Podiatry consulted, discussed with Dr. Irwin I& D or possible deep scraping and biopsy by Dr. Wallis Consult ID Diabetes: Accu-Cheks with sliding scale insulin, blood sugar below 150 without basal insulin, is on sliding scale now, usually is on 40 of Lantus daily at bedtime, consider starting basal insulin gradually patient has a history of hypoglycemia Chronic kidney disease stage III, with mild hyperkalemia: Improved, monitor BMP Hypertension, hyperlipidemia: Continue home medications DVT prevention: Sequential compression devices Discharge Planning When cleared by podiatry Problem Qualifiers (1) Diabetes mellitus: Qualified Code: E10.40 - Type 1 diabetes mellitus with diabetic neuropathy (2) Hypertension: Qualified Code: I15.9 - Secondary hypertension Jorge Amezquita MD Oct 31, 2016 15:26
[2016-10-31 16:00] VITALS: BP 142/76; PULSE 76; RESP 18; TEMP 98.6; O2SAT 97
[2016-10-31 20:00] VITALS: BP 139/72; PULSE 79; RESP 18; TEMP 97.1; O2SAT 98
[2016-10-31] MEDS: GABAPENTIN 300 MG CAP PO SCH (21:09)
[2016-10-31] MEDS: ATORVASTATIN 20 MG TAB PO SCH (21:09)
[2016-11-01] VITALS: BP 144/84; PULSE 80; RESP 18; TEMP 97.2; O2SAT 98
[2016-11-01] MEDS: PIPERACIL-TAZO 3.375 GM PREMIX 50 ML IV SCH ×4 (00:40→17:07)
[2016-11-01] MEDS: SODIUM CHLOR 0.9% 1000 ML INJ 1,000 ML IV SCH ×2 (04:06→17:08)
--- NOTE | 2016-11-01 05:15 | PD.CONS ---
History of Present Illness Service ID CONSULT DR NAIK Consult Requested By Reason for Consult LEFT ANKLE INFECTION / OSTEOMYELITIS Primary Care Physician Jess Tate MD Diagnoses: (1) Diabetic ankle ulcer (2) Diabetes mellitus (3) Osteomyelitis (4) Chronic kidney disease, stage 3 History of Present Illness 61 MALE ADM WITH LEFT ANKLE WOUND 10/28/16. HE IS DIABETIC WITH NEUROPATHY AND STATES HE MAY HAVE HIT HIS ANKLE ABOUT 2-3 WEEKS AGO WITHOUT REALIZING IT. HE STATES IT STARTED TO HAVE REDNESS AND SWELLING BUT DUE TO HIS NEUROPATHY HE DIDNT REALIZE THERE WAS AN ISSUE UNTIL IT BEGAN TO HAVE AN ODOR WHICH HE THEN REPORTED TO ER FOR EVALUATION. HE WAS FOUND TO HAVE A NECROTIC WOUND. HE WAS TAKEN TO THE OR FOR DEBRIDEMENT. THE BONE WAS NOTED TO BE ABNORMAL AND THUS BIOPSY WAS TAKEN. IT IS GROWING POLYMICROBES AND ID CONSULTED. HE IS ON VANCO/ ZOSYN. HE WORKS AT [employer] IN [employer]. Review of Systems Respiratory: DENIES: Cough Cardiovascular: DENIES: Chest pain Gastrointestinal: DENIES: Abdominal pain, Diarrhea Musculoskeletal: COMPLAINS OF: Joint pain Neurologic: DENIES: Abnormal gait Except as stated in HPI: all other systems reviewed are Neg Past Family Social History Allergies: Coded Allergies: No Known Allergies (Unverified , 10/28/16) Past Medical History Past Family Social History Past Medical History Hypertension Hyperlipidemia Diabetes Diabetic neuropathy Chronic kidney disease stage III History of aortic stenosis Past Surgical History Past Surgical History Tonsillectomy Aortic valve replacement Reported Medications Reported Medications Reported Meds & Active Scripts Active Ordered Medications Active Reported Humalog Inj (Insulin Human Lispro) 1,000 Unit/10 Ml Vial 8 Units SQ ACHS Max dose at bedtime:( )units; sugars< 70,(0)units; sugars 150-199,(1)unit; sugars 200-249,(3)units; sugars 250-299,(5)units; sugars 300-349,(7)units; sugars more than 349,(9)units. Lantus Solostar Pen Inj (Insulin Glargine) 300 Unit/3 Ml Pen 1 Units SQ HS Gabapentin 300 Mg Cap 300 Mg PO HS Rosuvastatin (Rosuvastatin Calcium) 10 Mg Tab 10 Mg PO HS Metoprolol Succinate ER 24 HR (Metoprolol Succinate) 50 Mg Tab 50 Mg PO DAILY Losartan (Losartan Potassium) 100 Mg Tab 100 Mg PO DAILY Family History Family History Reviewed and significant for father with heart disease and of heart attack. Social History Social History Patient quit smoking 1 year ago. He states that he smoked half a pack a cigarettes a day since early 20s. Denies alcohol rarely. Denies any illicit drugs Physical Exam Vital Signs Vital Signs Date Time Temp Pulse Resp B/P Pulse Ox O2 Delivery O2 Flow Rate FiO2 11/01/16 00:00 97.2 80 18 144/84 98 10/31/16 20:00 97.1 79 18 139/72 98 10/31/16 16:00 98.6 76 18 142/76 97 10/31/16 12:00 98.8 84 18 197/97 98 10/31/16 08:00 98.9 89 16 97 Physical Exam GENERAL: This is a well-nourished, well-developed patient, in no apparent distress. SKIN: No rashes, ecchymoses or lesions. Cool and dry. HEAD: Atraumatic. Normocephalic. No temporal or scalp tenderness. EYES: Pupils equal round and reactive. Extraocular motions intact. No scleral icterus. No injection or drainage. ENT: Nose without bleeding, purulent drainage or septal hematoma. Throat without erythema, tonsillar hypertrophy or exudate. Uvula midline. Airway patent. NECK: Trachea midline. No JVD or lymphadenopathy. Supple, nontender, no meningeal signs. CARDIOVASCULAR: Regular rate and rhythm without murmurs, gallops, or rubs. RESPIRATORY: Clear to auscultation. Breath sounds equal bilaterally. No wheezes , rales, or rhonchi. GASTROINTESTINAL: Abdomen soft, non-tender, nondistended. No hepato-splenomegaly , or palpable masses. No guarding. MUSCULOSKELETAL: LEFT ANKLE WITH SURGICAL DRSG. NO DRAINAGE. NO SWELLING NEUROLOGICAL: Awake and alert. Cranial nerves II through XII intact. Motor and sensory grossly within normal limits. Five out of 5 muscle strength in all muscle groups. Normal speech. Laboratory Date/Time Procedure Status Source Growth 10/30/16 08:05 Gram Stain - Final Resulted Wound Ankle 10/30/16 08:05 Wound Culture - Preliminary Resulted Staphylococcus Aureus Enterobacter Cloacae 10/30/16 08:05 Fungal Smear - Final Resulted Wound Ankle NO FUNGAL ELEMENTS SEEN. 10/30/16 08:05 Fungal Culture Resulted Wound Ankle Pending 10/30/16 08:05 Fungal Smear Received Wound Ankle Pending 10/30/16 08:05 Fungal Culture Received Wound Ankle Pending 10/30/16 08:05 Acid Fast Stain - Final Resulted Wound Ankle NO ACID FAST BACILLI SEEN 10/30/16 08:05 Mycobacterial Culture Resulted Wound Ankle Pending 10/28/16 15:40 Aerobic Blood Culture - Preliminary Resulted Blood Peripheral NO GROWTH IN 3 DAYS 10/28/16 15:40 Anaerobic Blood Culture - Preliminary Resulted Blood Peripheral NO GROWTH IN 3 DAYS Result Diagram: 10/29/16 0507 10/29/16 0507 Assessment and Plan Problem List: (1) Osteomyelitis Status: Acute Plan: DC VANCO CONTINUE ZOSYN FOR NOW PT WILL NEED IV ABX ON DISCHARGE 3-6 WEEKS WILL ORDER PICC LINE AND FOLLOW UP SEEN EXAM WITH DR NAIK (2) Diabetic ankle ulcer Status: Acute (3) Chronic kidney disease, stage 3 Status: Acute (4) Diabetes mellitus Status: Acute Problem Qualifiers (1) Diabetes mellitus: Qualified Code: E10.40 - Type 1 diabetes mellitus with diabetic neuropathy (2) Osteomyelitis: Qualified Code: M86.9 - Osteomyelitis of left ankle, unspecified type Michelle Lopez Nov 01, 2016 05:15
[2016-11-01] MEDS: INSULIN ASPART SUPPLEMENTAL SCALE SQ SCH ×4 (06:19→21:48)
--- NOTE | 2016-11-01 08:46 | PD.POD ---
Subjective Podiatric Problems Pt doing well today. on phone during exam Pain score: 3 Past Med/Surg/Social History Social History Smoking Status: Former Smoker Objective Vital Signs Vital Signs Date Time Temp Pulse Resp B/P Pulse Ox O2 Delivery O2 Flow Rate FiO2 11/01/16 00:00 97.2 80 18 144/84 98 10/31/16 20:00 97.1 79 18 139/72 98 10/31/16 16:00 98.6 76 18 142/76 97 10/31/16 12:00 98.8 84 18 197/97 98 Coded Allergies: No Known Allergies (Unverified , 10/28/16) Physical Exam Remarks Left ankle wound stable, about 2 cm, mild maceration edges, no pus, wound deep to bone. Can move ankle up and down Edema vastly improved since surgery No streaking or cellulitis seen Assessment & Plan A/P Left fibular osteomyelitis, open wound POD 2 Left ankle I and D and bone culture Bone positive for infection Plan is daily wound packing with betadine wet to dry IV antibiotics per ID for 6 weeks Plan is outpatient followups and once cultures are negative will discuss graft options Will hold off on wound vac for now and assess on weekly basis Pt said she could do daily dressing changes, I showed them how to do it WBAT in CAM boot No getting wound wet Wagner Wallis DPM Nov 01, 2016 08:46
[2016-11-01 10:30] VITALS: BP 158/71; PULSE 66; RESP 16; TEMP 97.5; O2SAT 97
[2016-11-01] MEDS: LOSARTAN 50 MG TAB PO SCH (10:38)
[2016-11-01] MEDS: cloNIDine HCL 0.1 MG TAB PO SCH ×2 (10:38→21:40)
[2016-11-01] MEDS: METOPROLOL SUCCINATE 50 MG EXTENDED RELEASE TAB PO SCH (10:39)
[2016-11-01] MEDS: SODIUM CHLORIDE 0.9% FLUSH 5 ML FLUSH IVF SCH ×2 (10:39→21:00)
[2016-11-01] MEDS: ACETAMINOPHEN/HYDROcodone 325 MG/5 MG TAB PO PRN (10:51)
--- NOTE | 2016-11-01 11:52 | HHI.PR ---
Subjective Remarks Follow-up osteomyelitis. Patient states that he feels better today. Pain is well controlled. No specific complaints at this time. Feels that he is ready to go home once arrangements are made for antibiotics. Objective Vitals Vital Signs Date Time Temp Pulse Resp B/P Pulse Ox O2 Delivery O2 Flow Rate FiO2 11/01/16 10:30 97.5 66 16 158/71 97 11/01/16 00:00 97.2 80 18 144/84 98 10/31/16 20:00 97.1 79 18 139/72 98 10/31/16 16:00 98.6 76 18 142/76 97 10/31/16 12:00 98.8 84 18 197/97 98 I/O 10/31/16 10/31/16 10/31/16 11/01/16 11/01/16 11/01/16 07:00 15:00 23:00 07:00 15:00 23:00 Intake Total 1040 ml 450 ml 480 ml Output Total 300 ml 1550 ml Balance 740 ml 450 ml -1070 ml Intake Oral 240 ml 450 ml 480 ml IV Total 800 ml Output Urine Total 300 ml 1550 ml # Voids 1 3 # Bowel Movements 0 0 Result Diagram: 10/29/16 0507 11/01/16 0540 Imaging Last Impressions Ankle X-Ray 10/28/16 0000 Signed Impressions: Service Date/Time: Friday, October 28, 2016 14:38 - CONCLUSION: Soft tissue swelling and apparent ulceration with no underlying bony abnormality. Valeriano Matta MD Ankle MRI 10/28/16 0000 Signed Impressions: Service Date/Time: Friday, October 28, 2016 18:19 - CONCLUSION: 1. Osteomyelitis distal fibula/lateral malleolus. 2. Small joint effusion. Angel Crowell MD Objective Remarks General: No acute distress. Heart: Regular rate and rhythm. No murmur. Lungs: Clear to auscultation bilaterally. No wheezes, rales, or rhonchi. Breathing is nonlabored. Abdomen: Soft, nontender, nondistended. Extremities: No lower extremity edema. Left ankle bandage, elevated. Psych: Alert and oriented. Procedures 10/30/16 left ankle incision and drainage with debridement of necrotic tissue, left fibula bone biopsy Urinary Catheter: No Vascular Central Line Catheter: No A/P Problem List: (1) Diabetic ankle ulcer ICD Code: E11.622 Status: Acute (2) Diabetes mellitus ICD Code: E11.9 Status: Chronic (3) Hypertension ICD Code: I10 Status: Chronic (4) Chronic kidney disease, stage 3 ICD Code: N18.3 Status: Chronic (5) Osteomyelitis of ankle, left, acute ICD Code: M86.172 Status: Acute Assessment and Plan 1. Left ankle osteomyelitis: Secondary to diabetic wound. Appreciate podiatry and infectious disease recommendations. Status post incision and drainage, debridement, bone biopsy. Continue IV antibiotics 6 weeks per infectious disease. PICC line to be placed today. 2. Diabetes mellitus: Monitor Accu-Cheks and cover with sliding scale insulin. Basal insulin on hold due to history of hypoglycemia. 3. Chronic kidney disease stage III: Stable. 4. Hypertension, hyperlipidemia: Continue home medications. 5. DVT prophylaxis: SCDs. Discharge Planning Plan for discharge home after PICC line is placed and arrangements are made for outpatient IV antibiotics. Problem Qualifiers (1) Diabetes mellitus: Qualified Code: E10.40 - Type 1 diabetes mellitus with diabetic neuropathy (2) Hypertension: Qualified Code: I15.9 - Secondary hypertension Gerard Bernal MD Nov 01, 2016 11:52
[2016-11-01 14:40] VITALS: BP 187/95; PULSE 77; RESP 15; TEMP 96.7; O2SAT 97
--- NOTE | 2016-11-01 15:06 | RADHPO ---
EXAM DATE/TIME: 11/01/2016 14:38 [facility] COMPARISON: CHEST SINGLE AP, October 14, 2015, 5:37. INDICATIONS : PICC line placement. MEDICAL HISTORY : Hypertension. Diabetes mellitus type II. SURGICAL HISTORY : Aoritc valve repair. ENCOUNTER: Initial ACUITY: 1 day PAIN SCORE: 0/10 LOCATION: Bilateral chest FINDINGS: Right arm PICC line is present good position with tip at the atriocaval junction level. There is mini mal streaky basilar parenchymal opacity, left worse than right. No evidence of effusion. Cardiac cont ours are satisfactory for technique and projection. Sternotomy wires are again noted. CONCLUSION: Satisfactory PICC line positioning. Elia Kraft MD on November 01, 2016 at 15:02 Board Certified Radiologist. This report was verified electronically.
[2016-11-01] MEDS ORDERED: SODIUM CHLORIDE 0.9% FLUSH 10 ML FLUSH IV FLUSH PRN (16:00)
[2016-11-01 17:57] VITALS: BP 152/83; PULSE 69; RESP 15; TEMP 99.3; O2SAT 97
[2016-11-01 20:00] VITALS: BP 139/74; PULSE 72; RESP 18; TEMP 97; O2SAT 97
[2016-11-01] MEDS: GABAPENTIN 300 MG CAP PO SCH (21:39)
[2016-11-01] MEDS: oxyCODONE/ACETAMINOPHEN 5 MG/325 MG TAB PO PRN (21:40)
[2016-11-01] MEDS: ATORVASTATIN 20 MG TAB PO SCH (21:40)
[2016-11-02] VITALS: BP 184/93; PULSE 75; RESP 18; TEMP 96.1; O2SAT 97
[2016-11-02] MEDS: PIPERACIL-TAZO 3.375 GM PREMIX 50 ML IV SCH ×3 (00:25→14:55)
[2016-11-02] MEDS: hydrALAZINE HCL 25 MG TAB PO PRN (00:38)
[2016-11-02] MEDS: SODIUM CHLOR 0.9% 1000 ML INJ 1,000 ML IV SCH ×2 (05:03→16:25)
[2016-11-02] MEDS: INSULIN ASPART SUPPLEMENTAL SCALE SQ SCH ×3 (06:42→16:00)
--- NOTE | 2016-11-02 07:41 | HHI.IDPN ---
Subjective Subjective Remarks ID FU DR NAIK FEELS BETTER WANTS TO GO HOME Allergies: Coded Allergies: No Known Allergies (Unverified , 10/28/16) Objective . Vital Signs Date Time Temp Pulse Resp B/P Pulse Ox O2 Delivery O2 Flow Rate FiO2 11/02/16 00:00 96.1 75 18 184/93 97 11/01/16 22:44 18 11/01/16 20:00 97.0 72 18 139/74 97 11/01/16 17:57 99.3 69 15 152/83 97 11/01/16 14:40 96.7 77 15 187/95 97 11/01/16 10:30 97.5 66 16 158/71 97 11/01/16 11/01/16 11/02/16 15:00 23:00 07:00 Intake Total 1000 ml 480 ml Output Total 800 ml Balance 1000 ml -320 ml Intake Oral 1000 ml 480 ml Output Urine Total 800 ml # Voids 5 # Bowel Movements 1 0 . Laboratory Tests Test 11/01/16 05:40 Creatinine 1.30 MG/DL Estimat Glomerular Filtration 56 ML/MIN Rate Microbiology Date/Time Procedure Status Source Growth 10/30/16 08:05 Gram Stain - Final Complete Wound Ankle 10/30/16 08:05 Wound Culture - Final Complete Staphylococcus Aureus Enterobacter Cloacae Anaerobic Gram Positive Cocci 10/30/16 08:05 Acid Fast Stain - Final Resulted Wound Ankle NO ACID FAST BACILLI SEEN 10/30/16 08:05 Mycobacterial Culture Resulted Wound Ankle Pending 10/30/16 08:05 Fungal Smear - Final Resulted Wound Ankle NO FUNGAL ELEMENTS SEEN. 10/30/16 08:05 Fungal Culture Resulted Wound Ankle Pending 10/30/16 08:05 Gram Stain - Final Complete Wound Ankle 10/30/16 08:05 Wound Culture - Final Complete Enterobacter Cloacae 10/30/16 08:05 Acid Fast Stain - Final Resulted Wound Ankle NO ACID FAST BACILLI SEEN 10/30/16 08:05 Mycobacterial Culture Resulted Wound Ankle Pending 10/30/16 08:05 Fungal Smear - Final Resulted Wound Ankle NO FUNGAL ELEMENTS SEEN. 10/30/16 08:05 Fungal Culture Resulted Wound Ankle Pending Physical Exam GENERAL: A&OX3 CHEST: CTA CARDIAC: RRR ABD: SOFT + BS EXT: DRSG DRY NO EDEMA Assessment & Plan Diagnosis: (1) Osteomyelitis Plan: DC VANCO CONTINUE ZOSYN FOR NOW PT WILL NEED IV ABX ON DISCHARGE 3-6 WEEKS WILL ORDER PICC LINE AND FOLLOW UP SEEN EXAM WITH DR NAIK (2) Diabetic ankle ulcer Plan: PLAN ROCEPHIN X 3-6 WEEKS WEEKLY LABS CBC BMP ESR CRP X 4 FU 2 WEEKS (3) Chronic kidney disease, stage 3 (4) Diabetes mellitus Problem Qualifiers (1) Osteomyelitis: Qualified Code: M86.9 - Osteomyelitis of left ankle, unspecified type (2) Diabetes mellitus: Qualified Code: E10.40 - Type 1 diabetes mellitus with diabetic neuropathy Michelle Lopez Nov 02, 2016 07:41
[2016-11-02 08:00] VITALS: BP 168/84; PULSE 71; RESP 16; TEMP 96.8; O2SAT 98
[2016-11-02] MEDS ORDERED: SODIUM CHLORIDE 0.9% FLUSH 10 ML FLUSH IV FLUSH SCH (09:00)
[2016-11-02] MEDS: SODIUM CHLORIDE 0.9% FLUSH 5 ML FLUSH IVF SCH (09:00)
[2016-11-02] MEDS: METOPROLOL SUCCINATE 50 MG EXTENDED RELEASE TAB PO SCH (09:15)
[2016-11-02] MEDS: cloNIDine HCL 0.1 MG TAB PO SCH (09:16)
[2016-11-02] MEDS: LOSARTAN 50 MG TAB PO SCH (09:16)
[2016-11-02] MEDS: ACETAMINOPHEN/HYDROcodone 325 MG/5 MG TAB PO PRN (09:23)
[2016-11-02 12:00] VITALS: BP 165/82; PULSE 60; RESP 16; TEMP 96.5; O2SAT 98
[2016-11-02 16:00] VITALS: BP 150/80; PULSE 71; RESP 16; TEMP 97.8; O2SAT 97
[2016-11-02] MEDS ORDERED: ROCE1INJ3 IV (16:52)
[2016-11-02] MEDS ORDERED: AMLO10 PO (16:52)
[2016-11-02] MEDS ORDERED: CLON.1 PO (16:52)
--- NOTE | 2016-11-02 17:02 | HHI.DS ---
Discharge Summary Admission Date Oct 28, 2016 at 15:53 Discharge Date: Nov 02, 2016 Admitting Diagnosis Osteomyelitis, left ankle Diabetic ankle ulcer Type 2 diabetes Chronic kidney disease, stage III (1) Diabetic ankle ulcer ICD Code: E11.622 (2) Diabetes mellitus ICD Code: E11.9 (3) Hypertension ICD Code: I10 (4) Chronic kidney disease, stage 3 ICD Code: N18.3 (5) Osteomyelitis of ankle, left, acute ICD Code: M86.172 Procedures 10/30/16 left ankle incision and drainage with debridement of necrotic tissue, left fibula bone biopsy Brief History - From Admission 61 year-old male with known history of hypertension, hyperlipidemia, diabetes, who presented to hospital because of foul smell and ulceration of his left ankle. Patient states that he does not do inspections of his skin as much as he should. He indicates that he started noticing a foul odor coming from his left ankle 2 days ago. He finally took a look at his ankle and noticed a ulceration so he came to the hospital for evaluation. Patient denies any fever , chills, chest pain, shortness of breath, pain in his lower extremities, any exudates noted from his wound. Patient had workup done emergency department to include x-ray which did show soft tissue swelling over the ulceration. Elevation in sedimentation rate and C-reactive protein. Because of those findings is recommended that the patient be admitted for further evaluation management. CBC/BMP: 10/29/16 0507 11/01/16 0540 Significant Findings Laboratory Tests Test 11/01/16 05:40 Estimat Glomerular Filtration 56 ML/MIN (>89) Rate PE at Discharge General: No acute distress. Heart: Regular rate and rhythm. No murmur. Lungs: Clear to auscultation bilaterally. No wheezes, rales, or rhonchi. Breathing is nonlabored. Abdomen: Soft, nontender, nondistended. Extremities: No lower extremity edema. Left ankle bandage, elevated. Psych: Alert and oriented. Pt update on day of discharge Patient feeling very well. No complaints. Pain controlled. Requesting discharge to home. PICC line in place. Discussed with ETHEL Martinez ID and CM - confirmed antibiotics set up for home - first dose to be delivered by 0900 tomorrow. Hospital Course Patient admitted with left lateral malleolus decubitus ulceration and diabetic neuropathy. X-ray was obtained showing soft tissue swelling of the lateral malleolus. Sedimentation rate and CRP were elevated. Patient was started empirically with vancomycin and Zosyn. Cultures were obtained from the wound. Podiatry was consult for further recommendations. MRI was ordered and showed osteomyelitis of distal fibula/lateral malleolus. Wound culture grew Enterobacter Cloacae, staph aureus, mixed anaerobes, gram-positive cocci and gram-negative rods. Patient was evaluated by manager field services Dr. Irwin and recommended debridement and bone biopsy to be done by Dr. Wallis. Patient underwent I&D, deep culture swab and left fibula bone biopsy/culture on . She was seen in consultation by infectious disease who discontinued vancomycin and continued the patient on Zosyn and recommended PICC line placement with plans for IV antibiotics upon discharge for 3-6 weeks. Patient' s intraoperative wound cultures grew Enterobacter Cloacae, staph aureus and anaerobic gram-positive cocci. Dr. Wallis cleared patient for discharge with daily dressing changes which consisted of daily wound packing with Betadine wet- to-dry that he instructed the patient's spouse on how to perform properly. He authorized weightbearing as tolerated in CAM boot and instructed the patient not to get the wound wet. Patient's IV antibiotics were set up by infectious disease for home infusion. Patient's PICC line was placed. He was cleared for discharge on IV Rocephin for 3 weeks with weekly CBC, BMP, ESR and CRP per ID. He was instructed to follow-up with infectious disease in 2 weeks and with podiatry in 1 week. Patient was discharged home. Pt Condition on Discharge: Stable Discharge Disposition: Discharge Home Discharge Time: > 30 minutes Discharge Instructions DIET: Follow Instructions for: Heart Healthy Diet, Diabetic Diet Activities you can perform: Weight Bearing as Aziza (in CAM boot) Follow up Referrals: Infectious Disease - [address] Geetha Montana [phone] PCP Follow-up - 1 Week Podiatry - 1 Week @ [facility] Nancie Wallis New Medications: Ceftriaxone Inj (Rocephin Inj) 1 Gm Inj 1 GM IV Q24H Infection Days 21 Ref 0 VIAL Amlodipine (Norvasc) 10 Mg Tab 10 MG PO DAILY HYPERTENSION #30 TAB Clonidine (Catapres) 0.1 Mg Tab 0.1 MG PO Q12HR HYPERTENSION #60 TAB Continued Medications: Gabapentin (Gabapentin) 300 Mg Cap 300 MG PO HS #30 Ref 0 CAP Insulin Glargine Inj (Lantus Solostar Pen Inj) 300 Unit/3 Ml Pen 40 UNITS SQ HS Blood Sugar Management Ref 0 PEN Insulin Lispro (Human) Inj (Humalog Inj) 1,000 Unit/10 Ml Vial 5 UNITS SQ HS Max dose at bedtime:( )units; sugars< 70,(0)units; sugars 150-199 ,(1)unit; sugars 200-249,(3)units; sugars 250-299,(5)units; sugars 300-349,(7) units; sugars more than 349,(9)units. Blood Sugar Management #1 Ref 0 VIAL Insulin Lispro (Human) Inj (Humalog Inj) 1,000 Unit/10 Ml Vial 3 UNITS SQ AC BREAKFAST Blood Sugar Management #1 Ref 0 VIAL Losartan (Losartan) 100 Mg Tab 100 MG PO DAILY Blood Pressure Management #30 Ref 0 TAB Metoprolol Succinate ER 24 HR (Metoprolol Succinate ER 24 HR) 50 Mg Tab 50 MG PO DAILY #30 Ref 0 TAB Rosuvastatin (Rosuvastatin) 10 Mg Tab 10 MG PO HS Cholesterol Management Ref 0 TAB Additional Information [facility] [phone] Written by Evon Alves PA-C acting as scribe for Dr. Bernal on 11/02/16 at 17:39. All or portions of this note were transcribed by scribe Evon Alves PA-C. I, Dr. Gerard Bernal personally performed the history, physical exam, and medical decision making; and confirmed the accuracy of the information in the transcribed note. Authenticated by Dr. Gerard Bernal on 11/02/16 at 19:02. Evon Alves Nov 02, 2016 17:01 Gerard Bernal MD Nov 02, 2016 19:02
--- NOTE | 2016-11-02 17:02 | HHI.DCPOC ---
Discharge Care Plan Diagnosis: (1) Diabetic ankle ulcer (2) Diabetes mellitus (3) Osteomyelitis of ankle, left, acute Goals to Promote Your Health * To prevent worsening of your condition and complications * To maintain your health at the optimal level Directions to Meet Your Goals Weight-bearing as tolerated on the left foot with CAM boot on Do not get wound wet Take your medications as prescribed Follow your dietary instruction Follow activity as directed Follow-up with your PCP in one week Keep your appointments as scheduled Take your immunizations and boosters as scheduled If your symptoms worsen call your PCP, if no PCP go to Urgent Care Center or Emergency Room Smoking is Dangerous to Your Health. Avoid second hand smoke Call the 24-hour hour crisis hotline for domestic abuse at Evon Alves Nov 02, 2016 17:02
[2016-11-02] MEDS ORDERED: PHARMACY ORDERED LAB XX ONE (17:45)
== END 2016-11-02 18:40 | disposition home or self-care (01) | DRG 479 ==
LOC: PHED 13:49 → PHEDA 15:53 → PH3A 17:21
PROVIDERS: ADMIT Family Medicine; ATTEND Family Medicine
PROC: 0QBK0ZX Excision of Left Fibula, Open Approach, Diagnostic (ICD-10-PCS; 2016-10-30)
PROC: 0QBK0ZZ Excision of Left Fibula, Open Approach (ICD-10-PCS; principal; 2016-10-30 07:38)
PROC: 02HV33Z Insertion of Infusion Device into Superior Vena Cava, Percutaneous Approach (ICD-10-PCS; 2016-11-01)
DX: M86.172 Other acute osteomyelitis, left ankle and foot (principal); E11.22 Type 2 diabetes mellitus with diabetic chronic kidney disease; E11.42 Type 2 diabetes mellitus with diabetic polyneuropathy; E11.622 Type 2 diabetes mellitus with other skin ulcer; B95.61 Methicillin susceptible Staphylococcus aureus infection as the cause of diseases classified elsewhere; B96.89 Other specified bacterial agents as the cause of diseases classified elsewhere; N18.3 Chronic kidney disease, stage 3 (moderate); E11.649 Type 2 diabetes mellitus with hypoglycemia without coma; I12.9 Hypertensive chronic kidney disease with stage 1 through stage 4 chronic kidney disease, or unspecified chronic kidney disease; E78.5 Hyperlipidemia, unspecified; I35.0 Nonrheumatic aortic (valve) stenosis; Z95.2 Presence of prosthetic heart valve; Z79.4 Long term (current) use of insulin
CPT/HCPCS: 36569; 71010; 73610; 73723; 76937; 80048; 80053; 80202; 82565; 82948; 85025; 85652; 86140; 86403; 87015; 87040; 87070; 87077; 87102; 87116; 87147; 87176; 87185; 87186; 87205; 87206; 93922; 99284; A9577; J1642; J1815; J2250; J2543; J3010; J3370; J7030; J7050; J7120; L2114